=== PATIENT | female | born 1945 | race Caucasian/White ===

== ENCOUNTER 2017-03-06 05:18 | Inpatient (IN) | payer OTHER ==
[~2017-03-06] VITALS: Ht 170.2 cm; Wt 86.6 kg
[2017-03-06 06:10] VITALS: BP 148/81
[2017-03-06 14:27] VITALS: BP 120/52
[2017-03-06 16:44] VITALS: BP 118/59
[2017-03-06 17:21] LABS: CHOLESTEROL/HDL RATIO 2.9; MAGNESIUM 1.5 mg/dL (1.8-2.4)
[2017-03-06 17:28] LABS: FREE T4 1.15 ng/dL (0.76-1.46); FREE THYROXINE INDEX 3.1 ug/dL (1.4-4.5)
[2017-03-06 17:29] LABS: T3 TOTAL 1.1 ng/mL
[2017-03-06 17:46] LABS: ALBUMIN 3.2 g/dL (3.4-5.0); ALKALINE PHOSPHATASE 64 U/L (46-116); ALT/SGPT 15 U/L (14-59); AST/SGOT 20 U/L (15-37); BILIRUBIN TOTAL 0.4 mg/dL (0.20-1.00); CALCIUM 8.4 mg/dL (8.5-10.1); CARBON DIOXIDE 24.9 mmol/L (21-32); CHLORIDE SERUM 109 mmol/L (98-107); CREATININE SERUM 0.7 mg/dL (0.6-1.0); GLUCOSE SERUM 164 mg/dL (74-106); SODIUM SERUM 144 mmol/L (136-145); TOTAL PROTEIN, SERUM 5.8 g/dL (6.4-8.2)
[2017-03-06 22:09] VITALS: BP 128/42
[2017-03-07 08:56] LABS: CALCIUM 8.5 mg/dL (8.5-10.1); CARBON DIOXIDE 23.3 mmol/L (21-32); CHLORIDE SERUM 106 mmol/L (98-107); CREATININE SERUM 0.6 mg/dL (0.6-1.0); GLUCOSE SERUM 126 mg/dL (74-106); MAGNESIUM 1.5 mg/dL (1.8-2.4); POTASSIUM SERUM 3.9 mmol/L (3.5-5.1); SODIUM SERUM 140 mmol/L (136-145)
[2017-03-07 10:00] VITALS: BP 114/74
[2017-03-07 10:04] LABS: BASOPHIL % 0.2 % (0-2); PLATELET COUNT 124 x10^3mcL (130-400); RED CELL DISTRIBUTION WIDTH 13.7 % (11.5-14.5)
[2017-03-07 18:12] LABS: UA SPECIFIC GRAVITY >=1.030 (1.005-1.035); microscopic required? YES; urine erythrocyte NEGATIVE (NEGATIVE)
[2017-03-07 21:04] VITALS: BP 111/57
[2017-03-08 06:11] VITALS: BP 121/54
[2017-03-08 06:33] LABS: RED CELL DISTRIBUTION WIDTH 13.6 % (11.5-14.5)
[2017-03-08 06:43] LABS: CARBON DIOXIDE 26.8 mmol/L (21-32); CHLORIDE SERUM 102 mmol/L (98-107); CREATININE SERUM 0.7 mg/dL (0.6-1.0); GLUCOSE SERUM 141 mg/dL (74-106); MAGNESIUM 1.2 mg/dL (1.8-2.4); POTASSIUM SERUM 3.5 mmol/L (3.5-5.1); SODIUM SERUM 133 mmol/L (136-145)
[2017-03-08 06:45] LABS: BASOPHIL % 0 % (0-2); PLATELET COUNT 110 x10^3mcL (130-400)
[2017-03-08 08:50] VITALS: BP 98/35
[2017-03-08 12:30] VITALS: BP 108/40
[2017-03-09 06:51] VITALS: BP 127/53
[2017-03-09 07:32] LABS: BASOPHIL % 0.2 % (0-2); RED CELL DISTRIBUTION WIDTH 13.7 % (11.5-14.5)
[2017-03-09 07:34] LABS: PLATELET COUNT 117 x10^3mcL (130-400)
[2017-03-09 08:12] LABS: CALCIUM 8.3 mg/dL (8.5-10.1); CARBON DIOXIDE 24.8 mmol/L (21-32); CHLORIDE SERUM 111 mmol/L (98-107); CREATININE SERUM 0.8 mg/dL (0.6-1.0); GLUCOSE SERUM 157 mg/dL (74-106); MAGNESIUM 1.9 mg/dL (1.8-2.4); POTASSIUM SERUM 3.3 mmol/L (3.5-5.1); SODIUM SERUM 143 mmol/L (136-145)
[2017-03-09 08:50] VITALS: BP 132/53
[2017-03-09 11:55] VITALS: BP 134/56
[2017-03-09 17:00] VITALS: BP 118/72
[2017-03-09 21:51] VITALS: BP 148/56
[2017-03-10 05:40] VITALS: BP 144/55
[2017-03-10 06:13] LABS: CALCIUM 9.2 mg/dL (8.5-10.1); CARBON DIOXIDE 22.5 mmol/L (21-32); CHLORIDE SERUM 110 mmol/L (98-107); CREATININE SERUM 0.7 mg/dL (0.6-1.0); GLUCOSE SERUM 125 mg/dL (74-106); MAGNESIUM 1.6 mg/dL (1.8-2.4); POTASSIUM SERUM 3.4 mmol/L (3.5-5.1); SODIUM SERUM 143 mmol/L (136-145)
[2017-03-10 08:26] LABS: BASOPHIL % 0.3 % (0-2); PLATELET COUNT 138 x10^3mcL (130-400); RED CELL DISTRIBUTION WIDTH 14.1 % (11.5-14.5)
[2017-03-10 09:52] VITALS: BP 136/84
[2017-03-10 13:49] VITALS: BP 151/55
[2017-03-10 17:50] VITALS: BP 165/72
[2017-03-10 21:16] VITALS: BP 140/65
[2017-03-11 05:42] VITALS: BP 140/62
[2017-03-11 06:00] LABS: CALCIUM 9.2 mg/dL (8.5-10.1); CARBON DIOXIDE 26.9 mmol/L (21-32); CHLORIDE SERUM 108 mmol/L (98-107); CREATININE SERUM 0.7 mg/dL (0.6-1.0); GLUCOSE SERUM 114 mg/dL (74-106); MAGNESIUM 1.5 mg/dL (1.8-2.4); POTASSIUM SERUM 4.6 mmol/L (3.5-5.1); SODIUM SERUM 144 mmol/L (136-145)
[2017-03-11 06:04] LABS: BASOPHIL % 0.1 % (0-2); PLATELET COUNT 178 x10^3mcL (130-400); RED CELL DISTRIBUTION WIDTH 14.5 % (11.5-14.5)
[2017-03-11 10:08] VITALS: BP 121/44
[2017-03-11 18:36] VITALS: BP 148/68
[2017-03-11 22:01] VITALS: BP 108/69
[2017-03-12 05:32] VITALS: BP 151/64
[2017-03-12 06:41] LABS: BASOPHIL % 0.3 % (0-2); PLATELET COUNT 171 x10^3mcL (130-400); RED CELL DISTRIBUTION WIDTH 14.2 % (11.5-14.5)
[2017-03-12 06:48] LABS: CALCIUM 8.8 mg/dL (8.5-10.1); CARBON DIOXIDE 28.9 mmol/L (21-32); CHLORIDE SERUM 106 mmol/L (98-107); CREATININE SERUM 0.7 mg/dL (0.6-1.0); GLUCOSE SERUM 115 mg/dL (74-106); MAGNESIUM 1.7 mg/dL (1.8-2.4); POTASSIUM SERUM 4.2 mmol/L (3.5-5.1); SODIUM SERUM 140 mmol/L (136-145)
[2017-03-12 10:00] VITALS: BP 124/56
[2017-03-12] MEDS ORDERED: LEVAQUIN750 MG PO ×2 (12:40→13:05)
[2017-03-12] MEDS ORDERED: CLINDAMYCIN HC300 MG PO ×2 (12:41→13:05)
[2017-03-12] MEDS ORDERED: ESGIC CAPSULE1 EACH PO (12:59)
[2017-03-12] MEDS ORDERED: COL100 PO (12:59)
[2017-03-12] MEDS ORDERED: FIORICET1 CAP PO (13:05)
[2017-03-12] MEDS ORDERED: COLACE100 MG PO (13:05)
[2017-03-12 14:28] VITALS: BP 124/56
== END 2017-03-12 16:10 | disposition home or self-care (01) | DRG 469 ==
LOC: MU 05:18 → DU 05:18 → MU 17:51 → DU 03-08 02:25 → MU 03-11 13:18
PROVIDERS: Family Medicine; Neuromusculoskeletal Medicine, Sports Medicine; ADMIT Family Medicine
PROC: 0SRD0J9 Replacement of Left Knee Joint with Synthetic Substitute, Cemented, Open Approach (ICD-10-PCS; principal; 2017-03-06 08:30)
DX: M17.12 Unilateral primary osteoarthritis, left knee (principal); J69.0 Pneumonitis due to inhalation of food and vomit; N17.0 Acute kidney failure with tubular necrosis; E44.1 Mild protein-calorie malnutrition; N39.0 Urinary tract infection, site not specified; E86.0 Dehydration; I10 Essential (primary) hypertension; D64.9 Anemia, unspecified; E83.41 Hypermagnesemia; K21.9 Gastro-esophageal reflux disease without esophagitis; F41.9 Anxiety disorder, unspecified; G47.00 Insomnia, unspecified; E78.5 Hyperlipidemia, unspecified; E66.9 Obesity, unspecified; Z68.30 Body mass index [BMI] 30.0-30.9, adult
CPT/HCPCS: 82962; 83880; 84439; 94150; 97110-GP; 97116-GP; 97139; 97530-GP; C1713; C1776; J0690; J0696; J1170; J1650; J1885; J1956; J2270; J2274; J2405; J2704; J2710; J3010; J3475; J3480; J3490; J7030; J7120; J7620; Q0092; Q9967

== ENCOUNTER 2019-11-01 12:16 | Emergency (ER) | payer OTHER ==
[~2019-11-01] VITALS: Ht 170.2 cm; Wt 72.1 kg
[~2019-11-01 12:16] MED LIST: CLINDAMYCIN HC300 MG PO; COL100 PO; COLACE100 MG PO; ESGIC CAPSULE1 EACH PO; FIORICET1 CAP PO; LEVAQUIN750 MG PO
[2019-11-01 12:25] VITALS: Ht 170.2 cm; Wt 72.1 kg
[2019-11-01 14:12] VITALS: BP 164/72
== END 2019-11-01 14:12 | disposition home or self-care (01) ==
LOC: ED 12:16
DX: S12.9XXA Fracture of neck, unspecified, initial encounter (principal); S80.02XA Contusion of left knee, initial encounter; I10 Essential (primary) hypertension; E78.00 Pure hypercholesterolemia, unspecified; W18.30XA Fall on same level, unspecified, initial encounter; Y93.89 Activity, other specified; Y92.89 Other specified places as the place of occurrence of the external cause; Y99.8 Other external cause status
CPT/HCPCS: Q0092